=== PATIENT | female | born 1970 | race Hispanic/Latino ===

== ENCOUNTER 2022-02-26 05:30 | Observation (INO) | payer BC ==
[2022-02-25 12:07] LABS: BASOPHILS % (AUTO) 0.6 % (0.0-5.0); EOSINOPHILS % (AUTO) 1.9 % (0.0-8.0); HEMATOCRIT 40.3 % (36-48); MEAN CORPUSCULAR HEMOGLOBIN 29.1 pg (27.0-33.0); MEAN CORPUSCULAR HGB CONC 32.8 g/dL (32.0-36.0); MEAN CORPUSCULAR VOLUME 88.8 fL (79-99); MONOCYTES % (AUTO) 9.7 % (3.0-13.0); NEUTROPHILS % (AUTO) 58.2 % (40.0-77.0); PLATELET COUNT (AUTO) 255 K/uL (130-400); RED BLOOD CELL COUNT(AUTO) 4.54 MIL/uL (4.00-5.50); RED CELL DISTRIBUTION WIDTH 14.1 % (11.0-15.5); WHITE BLOOD COUNT (AUTO) 6.7 K/uL (4.8-10.8)
[2022-02-25 12:13] LABS: APPEARANCE,URINE Cloudy (CLEAR); BILIRUBIN,URINE Negative (NEGATIVE); COLOR,URINE Yellow (YELLOW); GLUCOSE, URINE (UA) Negative (NEGATIVE); KETONES,URINE Negative (NEGATIVE); LEUKOCYTE ESTERASE ,URINE Moderate (NEGATIVE); NITRATE,URINE Negative (NEGATIVE); OCCULT BLOOD,URINE Negative (NEGATIVE); PROTEIN,URINE Negative (NEGATIVE); UROBILINOGEN,URINE 0.2 mg/dL (0.2-1.0)
[2022-02-25 12:23] LABS: INR 0.93 (0.85-1.15); PROTHROMBIN TIME 9.9 SEC (9.6-11.6)
[2022-02-25 12:24] LABS: PARTIAL THROMBOPLASTIN TIME 25.9 SEC (26.3-35.5)
[2022-02-25 12:26] VITALS: BP 126/65
[2022-02-25 12:27] LABS: BACTERIA,URINE Rare /HPF (None Seen); RBC,URINE 0-1 /HPF (0-1); SQUAMOUS EPITHELIAL CELL,UR Few /HPF (0-2)
[~2022-02-26] VITALS: Ht 149.9 cm; Wt 61.5 kg
[2022-02-26] VITALS (25 sets, daily range): BP systolic 98–139; BP diastolic 45–97
[2022-02-26] MEDS: CEFAZOLIN SODIUM 2 GM VIAL IV SCH ×2 (05:00→20:19)
[~2022-02-26 05:30] MED LIST: HYDR25TA PO; LISI40TA9 PO
[2022-02-26] MEDS ORDERED: LACTATED RINGERS 1000ML 1,000 ML IV ONE (05:45)
[2022-02-26] MEDS ORDERED: CEFAZOLIN SODIUM 1 GM VIAL ONE (05:46)
[2022-02-26] MEDS ORDERED: SUCCINYLCHOLINE 200MG/10ML SYR ONE (07:00)
[2022-02-26] MEDS ORDERED: PROPOFOL 10 MG/ML 20ML VIAL IV ONE (07:00)
[2022-02-26] MEDS ORDERED: ROCURONIUM 10MG/1ML SYR 10 MG/ML ML ONE (07:00)
[2022-02-26] MEDS ORDERED: LIDOCAINE PF 100MG/5ML (2%) SYRINGE 5ML ONE (07:00)
[2022-02-26] MEDS ORDERED: MIDAZOLAM HCL 1 MG/ML 2ML VIAL ONE (07:00)
[2022-02-26] MEDS ORDERED: FENTANYL CITRATE PF 50 MCG/1 ML 2ML VIAL ONE (07:01)
[2022-02-26] MEDS ORDERED: CEFAZOLIN SODIUM 2 GM VIAL IV ONE (07:05)
[2022-02-26] MEDS ORDERED: NEOSTIGMINE 5MG/5ML SYR IV ONE (08:27)
[2022-02-26] MEDS ORDERED: GLYCOPYRROLATE 1 MG/5 ML SYRINGE ONE (08:27)
[2022-02-26] MEDS ORDERED: MEPERIDINE-PF 25 MG/ML SYG ONE ×2 (08:55→09:12)
[2022-02-26] MEDS ORDERED: DOCUSATE SODIUM 100 MG CAP PO PRN (09:30)
[2022-02-26] MEDS ORDERED: ONDANSETRON 4MG INJ IVP PRN (09:30)
[2022-02-26] MEDS ORDERED: PROMETHAZINE HCL 25 MG/ML 1ML AMPULE IM PRN (09:30)
[2022-02-26] MEDS ORDERED: ACETAMINOPHEN WITH CODEINE 1 TAB TAB PO PRN (09:30)
[2022-02-26] MEDS ORDERED: IBUPROFEN 600 MG TABLET PO PRN (09:30)
[2022-02-26] MEDS ORDERED: BISACODYL 10 MG SUPP.RECT RC PRN (09:30)
[2022-02-26] MEDS ORDERED: MEPERIDINE-PF 75 MG/ML SYG ONE (09:42)
[2022-02-26] MEDS: PROMETHAZINE HCL 25 MG/ML 1ML AMPULE IM PRN ×2 (09:48→18:11)
[2022-02-26] MEDS: MEPERIDINE-PF 75 MG/ML SYG IM PRN ×2 (09:48→18:21)
[2022-02-26] MEDS: DEXTROSE 5 %-0.45 % NACL 1,000 ML IV PRN ×2 (09:49→17:59)
[2022-02-26] MEDS: SIMETHICONE 80 MG TAB.CHEW PO PRN (14:51)
[2022-02-27] MEDS: DEXTROSE 5 %-0.45 % NACL 1,000 ML IV PRN (02:09)
[2022-02-27 03:21] VITALS: BP 147/77
[2022-02-27 06:00] LABS: HEMATOCRIT 37.5 % (36-48); MEAN CORPUSCULAR HEMOGLOBIN 29.1 pg (27.0-33.0); MEAN CORPUSCULAR HGB CONC 33.3 g/dL (32.0-36.0); MEAN CORPUSCULAR VOLUME 87.4 fL (79-99); RED BLOOD CELL COUNT(AUTO) 4.29 MIL/uL (4.00-5.50); RED CELL DISTRIBUTION WIDTH 13.6 % (11.0-15.5); WHITE BLOOD COUNT (AUTO) 9.1 K/uL (4.8-10.8)
[2022-02-27 07:20] VITALS: BP 144/84
[2022-02-27] MEDS: SIMETHICONE 80 MG TAB.CHEW PO PRN (08:25)
[2022-02-27 11:28] VITALS: BP 125/81
== END 2022-02-27 13:15 | disposition home or self-care (01) ==
LOC: DAH 05:30 → WSH 05:31 → DAH 05:31 → WSH 09:40
PROVIDERS: ADMIT Obstetrics & Gynecology; ATTEND Obstetrics & Gynecology
DX: N92.1 Excessive and frequent menstruation with irregular cycle (principal); Z20.822 Contact with and (suspected) exposure to COVID-19; N81.4 Uterovaginal prolapse, unspecified; K46.9 Unspecified abdominal hernia without obstruction or gangrene; I10 Essential (primary) hypertension; E78.00 Pure hypercholesterolemia, unspecified; D25.9 Leiomyoma of uterus, unspecified; E66.9 Obesity, unspecified; Z79.899 Other long term (current) drug therapy; Z90.710 Acquired absence of both cervix and uterus
CPT/HCPCS: 36415 ×3; 58263; 81001; 84703; 85025; 85027; 85610; 85730; 86850; 86900; 86901; 87088; 87635; 96372; A4215; A4221; A4222; A4223; A4351; A4606; A4663; A6260; C9803; G0378 ×4; J0330; J0690 ×2; J2001; J2175 ×4; J2250; J2550; J2704; J2710; J3010; J3490; J7120 ×2